=== PATIENT | female | born 2000 | race Caucasian/White ===

== ENCOUNTER 2020-01-27 11:45 | Emergency (ER) | payer SELFPAY ==
[2020-01-27 11:48] VITALS: BP 99/72; PULSE 108; RESP 18; TEMP 36.8; O2SAT 98; BMI 23.8
[2020-01-27 11:53] VITALS: BP 99/72; PULSE 103; RESP 18; O2SAT 98
--- NOTE | 2020-01-27 11:53 | XRR_ITS ---
PROCEDURE INFORMATION: Exam: XR Left Forearm Exam date and time: 01/27/2020 12:44 PM Age: 19 years old Clinical indication: Injury or trauma; Fall; Initial encounter; Blunt trauma (contusions or hematomas); Arm, lower; Left; Injury date: 01/26/20; Additional info: Injury/pain TECHNIQUE: Imaging protocol: XR Left forearm. Views: 2 views. COMPARISON: No relevant prior studies available. FINDINGS: Bones/joints: Nondisplaced fracture of the distal radius, which was better visualized on dedicated wrist radiographs. Soft tissues: No significant soft tissue swelling. XR/XR forearm LT 2V [id number] IMPRESSION: Nondisplaced fracture of the distal radius, which was better visualized on dedicated wrist radiographs.
--- NOTE | 2020-01-27 11:53 | XRR_ITS ---
PROCEDURE INFORMATION: Exam: XR Left Wrist Exam date and time: 01/27/2020 12:44 PM Age: 19 years old Clinical indication: Injury or trauma; Fall; Initial encounter; Blunt trauma (contusions or hematomas); Wrist; Left; Injury date: 01/26/20; Additional info: Injury/pain TECHNIQUE: Imaging protocol: XR Left wrist. Views: 3 or more views. COMPARISON: No relevant prior studies available. FINDINGS: Bones/joints: Nondisplaced intra-articular fracture of the distal left radius. Soft tissues: Unremarkable soft tissues. XR/XR wrist LT min 3V* [id number] IMPRESSION: Nondisplaced intra-articular fracture of the distal left radius.
--- NOTE | 2020-01-27 11:54 | ED_ITS ---
HPI - Extremity Injury (Upper) General: Chief Complaint: Extremity Injury, Upper Stated Complaint: LEFT FOREARM PAIN Time Seen by Provider: 01/27/20 11:47 Source: patient Mode of arrival: ambulatory Limitations: no limitations History of Present Illness: HPI narrative: Patient is a 19-year-old female who presents to ED today for evaluation of a left arm injury. Patient tells me yesterday her and another individual or leaning against a rail when the rail broke causing the other individual to land onto her left forearm and wrist. No other injury sustained during the fall. MD complaint: injury to: left, forearm and wrist Onset (ago): hour(s) Relieving factors: immobilization Exacerbating factors: movement of extremity Context: fall and direct blow Associated symptoms: Reports no associated symptoms; Denies neck pain Review of Systems Musc: Reports: extremity pain (L forearm) and joint pain (L wrist); Denies: neck pain or back pain Neuro: Denies: numbness in extremities or sensory changes Physical Exam Const: COMMON NORMALS: no acute distress, average body habitus, patient oriented x3, no limitations, healthy appearing, alert and well nourished Extremity: GENERAL: Yes normal exam except as noted OTHER: TTP mid to L distal forearm and wrist ; no obvious deformity noted; minimal swelling; NV intact; dec ROM of L wrist secondary to pain Neuro: COMMON NORMALS: patient oriented x3, moves all extremities, no focal motor deficits and no sensory deficits noted SENSORIUM/ORIENTATION: Yes alert Skin: COMMON NORMALS: no rashes or lesions noted GENERAL SKIN EXAM: no rashes or lesions noted Course Vital Signs: Vital signs: Vital Signs Temperature 98.2 F 01/27/20 11:48 Pulse Rate 70 01/27/20 13:31 Respiratory Rate 16 01/27/20 13:31 Blood Pressure 99/72 01/27/20 11:53 Pulse Oximetry 98 01/27/20 11:53 MDM - Extremity Injury (Upper) MDM Narrative: Medical decision making narrative: will splint and have her follow up with orthopedics Imaging Data^: XR L forearm: My impression: NAD XR L wrist: My impression: appears to have a slightly impacted non-displaced distal radial fx Discharge Plan Discharge Patient Disposition: Home Clinical Impression: Distal radius fracture, left Qualifiers: Encounter type: initial encounter Fracture type: closed Fracture morphology: unspecified fracture morphology Qualified Code(s): S52.502A - Unspecified fracture of the lower end of left radius, initial encounter for closed fracture Condition: Stable Prescriptions: No Action No Known Home Medications RF: 0 Discharge Orders: Discharge Order (Routine); Ordered 01/27/20 Ordered By: Edie Mcdaniel Referrals: Marisa Griffiths DO [Primary Care Provider] - Patient Instructions: Wrist Fracture in Adults (ED) Activity Restrictions/Additional Instructions: As discussed please follow up with orthopedics for further management. Stand Alone Forms: Work/School Release Discharge Date/Time: 01/27/20 13:32 Coding Level of Care Code ED Finisher Fine Diamond Dies for Zackeryg Fwd Exam Expanded Problem Focused
[2020-01-27 13:31] VITALS: PULSE 70; RESP 16
--- NOTE | 2020-01-29 09:25 | DCPLANNER ---
batch and furnace manager had message to schedule a follow up appointment for patient with ortho. batch and furnace manager called the ortho clinic, spoke with Pat, gave clinic patients information. batch and furnace manager was told that patients information would be printed and reviewed. Clinic will call patient with appointment information.
--- NOTE | 2020-01-30 12:33 | DCPLANNER ---
Patient has a follow up appointment scheduled for , February 01, 2020 at 12:[address] Vazquez. Clinic will call patient with appointment information.
--- NOTE | 2020-02-16 10:50 | DCPLANNER ---
Patient had follow up appointment scheduled with ortho - patient did attend the appointment.
== END 2020-01-27 13:32 | disposition home or self-care (01) ==
PROVIDERS: Emergency Provider Physician Assistant; PCP Family Medicine
DX: S52.502A Unspecified fracture of the lower end of left radius, initial encounter for closed fracture (principal); W03.XXXA Other fall on same level due to collision with another person, initial encounter
CPT/HCPCS: 12345; 29125; 73090; 73110; 99281; 99283

== ENCOUNTER → 2020-02-09 08:11 | Outpatient (BNVA) | payer SELFPAY | PROVIDERS: PCP Family Medicine; Visit Provider Orthopaedic Surgery | DX: S52.502A Unspecified fracture of the lower end of left radius, initial encounter for closed fracture (principal); W03.XXXA Other fall on same level due to collision with another person, initial encounter | CPT/HCPCS: 73110 ==

== ENCOUNTER 2020-02-09 09:59 | Outpatient (CLI) | payer SELFPAY | END 2020-02-09 10:00 | disposition home or self-care (01) | LOC: SPT 10:00 | PROVIDERS: PCP Family Medicine; Referring Provider Orthopaedic Surgery; Visit Provider Orthopaedic Surgery | DX: Z47.89 Encounter for other orthopedic aftercare (principal); S52.502D Unspecified fracture of the lower end of left radius, subsequent encounter for closed fracture with routine healing; X58.XXXD Exposure to other specified factors, subsequent encounter | CPT/HCPCS: 97760; L3982 ==

== ENCOUNTER 2020-02-12 14:46 | Emergency (ER) | payer OTHER, SELFPAY ==
[2020-02-12 14:56] VITALS: BP 122/80; PULSE 85; RESP 18; TEMP 37.1; O2SAT 98; BMI 23.8
--- NOTE | 2020-02-12 16:25 | ED_ITS ---
HPI - General Adult General: Chief complaint: General Medical Stated complaint: EXPOSED TO COVID, LOSS OF SMELL AND TASTE,FEVER, Time Seen by Provider: 02/12/20 15:05 History of Present Illness: HPI narrative: 19-year-old female patient presents to the emergency department with complaints of nausea vomiting x24 hours, reports was able to drink and eat some today without vomiting. She reports has experienced loss of taste and smell for the past 7 days. She also reports low- grade temp with chills and some diarrhea. No diarrhea today. 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 Has tested negative for COVID today. She reports does not know what is wrong with her and is not improving. Her oxygen saturation is 98% on room air. Onset (ago): day(s) (7) Pain Consistency: intermittent Relieving factors: rest Associated symptoms: Reports cough, decreased appetite (Due to loss of appetite), nausea and vomiting (None today); Deny chest pain, diaphoresis, dyspnea, headache(s), rash or palpitations Treatments prior to arrival: other (Tylenol) Review of Systems General: Reports: 10 or more systems reviewed and unremarkable except in HPI and below Const: Reports: fever(s), chills and body aches; Denies: diaphoresis Eyes: Denies: blurry vision or eye redness ENMT: Denies: throat pain, dental pain or disequilibrium Card: Denies: chest pain, palpitations or irregular heart rhythm Resp: Reports: non-productive cough; Denies: dyspnea, productive cough or wheezing GI: Reports: nausea, vomiting (None today) and diarrhea (None today) : Denies: difficulty voiding or dysuria Musc: Denies: back pain Skin/Breast: Denies: rash or pruritus Neuro: Denies: headache(s), weakness in extremities or behavioral changes Marco/Lymph: Denies: easy bruising PFSH ED PFSH: Social History (Updated 02/09/20 @ 08:17 by Jennifer Morfin LPN) Smoking and tobacco status: never smoked Alcohol intake: current Alcohol intake frequency: holidays/special occasions only Physical Exam Const: COMMON NORMALS: no acute distress, patient oriented x3, healthy appearing and alert GENERAL APPEARANCE: cooperative, comfortable and well hydrated HENMT: COMMON NORMALS: normocephalic, EAC's normal, TM's normal bilaterally, Normal external nose present and moist oral mucous membranes HEAD & SCALP: normocephalic FACE & SINUS: normal facial exam and sinuses nontender NOSE: Normal external nose present EXTERNAL AUDITORY CANAL: EAC's normal TYMPANIC MEMBRANE: TM's normal bilaterally MOUTH: Normal oral and palatal mucosa present THROAT: posterior oropharynx normal Eye: COMMON NORMALS: Equal, round and reactive pupils present and EOMs intact bilaterally GENERAL EYE: appearance normal, both eyes and all related structures PUPIL: Yes Equal, round and reactive pupils present Neck/C-Spine: COMMON NORMALS: full ROM and no lymphadenopathy GENERAL: Yes normal visual inspection and Yes trachea midline CERVICAL SPINE: Yes cervical ROM normal Lymph: LYMPHATIC: no lymphadenopathy noted Chest: COMMONS NORMALS: normal inspection of the chest Resp: COMMON NORMALS: normal respiratory effort and clear to auscultation bilaterally AUSCULTATION: clear to auscultation bilaterally Cardio: COMMON NORMALS: regular rhythm, S1 normal heart sound present, S2 normal heart sound present and Peripheral pulses 2+ throughout RHYTHM: regular rhythm HEART SOUNDS: S1 normal heart sound present and S2 normal heart sound present PERIPHERAL PULSES: Peripheral pulses 2+ throughout GI: COMMON NORMALS: Normal to inspection, nondistended, normoactive bowel sounds present, Soft to palpation and non-tender INSPECTION: Yes normal to inspection PALPATION: Yes Soft to palpation : COMMON NORMALS: Yes no CVA tenderness BLADDER/KIDNEY EXAM: Yes no CVA tenderness Back/Pelvis: COMMON NORMALS: no CVA tenderness and thoracic and lumbar spine normal to inspection Extremity: COMMON NORMALS: normal to inspection and capillary refill normal Neuro: COMMON NORMALS: patient oriented x3 and no focal motor deficits SENSORIUM/ORIENTATION: Yes alert Psych: COMMON NORMALS: mental status grossly normal, Normal thought process present and cooperative ACTIVITY/MOTOR BEHAVIOR: Yes appropriate eye contact THOUGHT PROCESS: Normal thought process present Skin: COMMON NORMALS: no rashes or lesions noted and turgor normal GENERAL SKIN EXAM: no rashes or lesions noted and turgor normal Course ED course: Patient was able to drink without episodes of nausea, initial COVID testing negative, she was retested today in the ED secondary to testing technique discrepancies possible with previous testing. She will be advised to not return to work as she has symptoms of COVID. Madalyn for nausea, questions were answered. She is requesting to go home, able to tolerate p.o. fluids without vomiting or nausea. Vital Signs: Vital signs: Vital Signs Temperature 98.7 F 02/12/20 14:56 Pulse Rate 60 02/12/20 17:14 Respiratory Rate 14 02/12/20 17:14 Blood Pressure 106/64 02/12/20 17:14 Pulse Oximetry 98 02/12/20 17:14 MDM - General Adult Lab Data: Labs: Lab Results 02/12/20 Range/Units 16:20 Influenza Type A A g Negative (Negative) Influenza Type B A g Negative (Negative) Discharge Plan Discharge Patient Disposition: Home Clinical Impression: Suspected 2019 novel coronavirus infection, Acute viral syndrome Nausea & vomiting Qualifiers: Vomiting type: unspecified Vomiting Intractability: unspecified Qualified Code(s): R11.2 - Nausea with vomiting, unspecified Condition: Stable Prescriptions: New Zofran 4 mg tablet 4 mg PO Q4H PRN (Reason: nausea and vomiting) Qty: 10 RF: 0 No Action (DME) COCK UP SPLINT See Rx Instructions .Route .MEDSUPPLY Qty: 1 RF: 0 Discharge Orders: Discharge Order (Routine); Ordered 02/12/20 Ordered By: Maude Dyson Referrals: Marisa Griffiths DO [Primary Care Provider] - Discharge Diet: Advance as tolerated and Clear Liquid Discharge Activity: Limit activity as instructed Patient Instructions: Acute Nausea and Vomiting (ED), Viral Syndrome (ED), Viral Syndrome - Adult Activity Restrictions/Additional Instructions: Take Zofran as needed for nausea vomiting Clear liquid diet, advance as tolerated, avoid spicy, fried or greasy foods until improved You will need to remain in quarantine until symptoms resolve Follow-up with your primary care physician this week Return to the emergency department if you develop nausea vomiting with inability to keep Zofran or fluids down or worsening symptoms Stand Alone Forms: Work/School Release Discharge Date/Time: 02/12/20 17:15 Coding Level of Care Code ED Advertising Coordinator for Esteban Fwarlyn Exam Comprehensive
[2020-02-12 16:46] LABS: Influenza A by IFA Negative (Negative); Influenza B by IFA Negative (Negative)
[2020-02-12 17:14] VITALS: BP 106/64; PULSE 60; RESP 14; O2SAT 98
[2020-02-13 16:42] LABS: Quest SARS-CoV-2 RNA DETECTED (NOT DETECTED)
--- NOTE | 2020-02-14 09:38 | PC.NURSE ---
unable to reach pt and not able to leave a voicemail. will try again later
--- NOTE | 2020-02-14 12:13 | PC.NURSE ---
pt called back and was given the results of her covid test
== END 2020-02-12 17:15 | disposition home or self-care (01) ==
PROVIDERS: Emergency Provider Nurse Practitioner Family; PCP Family Medicine
DX: U07.1 COVID-19 (principal)
CPT/HCPCS: 12345; 87635; 87804; 99281; 99282

== ENCOUNTER 2020-06-15 05:32 | Emergency (ER) | payer OTHER, SELFPAY ==
--- NOTE | 2020-06-15 05:57 | ED_ITS ---
HPI - Alcohol General: Stated Complaint: etoh Time Seen by Provider: 06/15/20 05:55 History of Present Illness: HPI narrative: 19-year-old female presents intoxicated with alcohol. She passed out in the car, and had previously complained of trouble breathing. She is not complaining of trouble breathing now. She also admits to smoking marijuana as well. 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 Chronic alcohol use: No Previous visits for alcohol intoxication: No Recent trauma: No Associated symptoms: Deny abdominal pain, nausea, seizure-like activity, syncope or vomiting Review of Systems Const: Denies: fever(s) or chills Card: Denies: chest pain or syncope Resp: Reports: dyspnea; Denies: productive cough, non-productive cough, wheezing or stridor GI: Denies: abdominal pain, nausea or vomiting Neuro: Denies: seizure-like activity PFS ED PFSH: Family History (Updated 04/25/20 @ 07:57 by Lynda Cam) Grandmother Diabetes Maternal and Paternal Hypercholesteremia Maternal Uterine cancer Maternal--dx age Grandfather Diabetes Maternal and Paternal Hypercholesteremia Maternal Heart disease Paternal Stroke Maternal Hypertension Maternal Mother Hypercholesteremia Family/Other Uterine cancer Maternal Aunt--dx age Denies family history of Colon cancer Ovarian cancer Breast cancer Bleeding disorder Thyroid disease Social History (Updated 04/25/20 @ 07:53 by Lynda Cam) Additional social history: - Tobacco use: Never Alcohol use: holidays/special occasions Drug use: denies Physical Exam Const: GENERAL APPEARANCE: well kempt and well developed ORIENTATION/CONSCIOUSNESS: Yes oriented to person, Yes oriented to place and Yes oriented to time HENMT: COMMON NORMALS: normocephalic, external ears normal and Normal external nose present HEAD & SCALP: normocephalic FACE & SINUS: normal facial exam NOSE: Normal external nose present and No nasal discharge present EXTERNAL EAR: Yes external ears normal Eye: COMMON NORMALS: Equal, round and reactive pupils present, EOMs intact bilaterally and conjunctivae normal EYELID: eyelids normal CONJUNCTIVA: Yes conjunctivae normal PUPIL: Yes Equal, round and reactive pupils present Neck/C-Spine: GENERAL: No tracheal deviation Chest: COMMONS NORMALS: normal inspection of the chest CHEST: No tenderness Resp: COMMON NORMALS: clear to auscultation bilaterally EFFORT & INSPECTION: No tachypneic, No respiratory distress, No retractions, No uses acc essory muscles and No tracheal deviation AUSCULTATION: clear to auscultation bilaterally, no rhonchi, no wheezes and lung sounds not diminished Cardio: COMMON NORMALS: regular rate and regular rhythm RATE: regular rate RHYTHM: regular rhythm HEART SOUNDS: no murmurs PERIPHERAL PULSES: radial pulses present GI: INSPECTION: No abdominal distension AUSCULTATION: No Hyperactive bowel sounds present and No Hypoactive bowel sounds present PALPATION: No Guarding due to palpation present (GI) and No Rigid due to palpation PERCUSSION: no dullness to percussion and no tympanic to percussion Neuro: SENSORIUM/ORIENTATION: Yes oriented to person, Yes oriented to place and Yes oriented to time Psych: COMMON NORMALS: Normal thought process present APPEARANCE: Yes grossly normal and Yes well kempt ATTITUDE: Yes evasive ACTIVITY/MOTOR BEHAVIOR: Yes appropriate eye contact SPEECH: Yes slurred MOOD & AFFECT: Yes irritable THOUGHT PROCESS: Normal thought process present THOUGHT CONTENT: No Suicidality present, No delusions and No Hallucination(s) present OTHER: Intoxicated. But knows date, place, person, and situation. The patient walked without help in the ER. Skin: COMMON NORMALS: no rashes or lesions noted GENERAL SKIN EXAM: no rashes or lesions noted MDM - Alcohol MDM Narrative: Medical decision making narrative: Upon interview with the patient, she decided that she did not want medical treatment. She signed an AMA form. Again she was warned of risks of leaving. She has a sober pizza delivery driver. He gi ves verbal consent to watch her until sober. Discharge Plan Discharge Patient Disposition: Left Against Medical Advice Clinical Impression: Alcohol intoxication Qualifiers: Complication of substance-induced condition: uncomplicated Qualified Code(s): F10.920 - Alcohol use, unspecified with intoxication, uncomplicated Condition: Stable Prescriptions: No Action (DME) COCK UP SPLINT See Rx Instructions .Route .MEDSUPPLY Qty: 1 RF: 0 Zofran 4 mg tablet 4 mg PO Q4H PRN (Reason: nausea and vomiting) Qty: 10 RF: 0 Referrals: Marisa Griffiths DO [Primary Care Provider] - 1-3 days Patient Instructions: Alcohol Intoxication (ED) Coding Level of Care Code ED Medical Diagnostic Radiographer for Chg Fwd Exam Comprehensive
== END 2020-06-15 06:02 | disposition left against medical advice (07) ==
PROVIDERS: Emergency Provider Emergency Medicine; PCP Family Medicine
DX: F10.920 Alcohol use, unspecified with intoxication, uncomplicated (principal); Z53.21 Procedure and treatment not carried out due to patient leaving prior to being seen by health care provider
CPT/HCPCS: 12345; 99281

== ENCOUNTER → 2021-01-07 18:55 | Outpatient (BNVA) | payer SELFPAY | PROVIDERS: PCP Family Medicine; Visit Provider Registered Nurse Neonatal Intensive Care | DX: R39.9 Unspecified symptoms and signs involving the genitourinary system (principal); Z20.2 Contact with and (suspected) exposure to infections with a predominantly sexual mode of transmission | CPT/HCPCS: 81000; 87491; 87591; 87661 ==

== ENCOUNTER 2021-05-06 17:39 | Emergency (ER) | payer SELFPAY ==
--- NOTE | 2021-05-06 18:19 | XRR_ITS ---
PROCEDURE INFORMATION: Exam: XR Chest Exam date and time: 05/06/2021 6:19 PM Age: 20 years old Clinical indication: Chest wall pain and left-sided; Additional info: SOB TECHNIQUE: Imaging protocol: XR of the chest. Views: 1 view. COMPARISON: No relevant prior studies available. FINDINGS: Lungs: Unremarkable. No consolidation. Pleural spaces: Unremarkable. No pleural effusion. No pneumothorax. Heart/Mediastinum: Unremarkable. No cardiomegaly. Bones/joints: Unremarkable. XR/XR chest 1V portable [id number] IMPRESSION: No acute findings.
[2021-05-06 19:33] VITALS: BP 116/71; PULSE 98; RESP 19; TEMP 36.6; O2SAT 98; BMI 21.9
--- NOTE | 2021-05-06 19:49 | W.ED.COVID ---
HPI - COVID General: Chief Complaint: COVID symptoms Stated Complaint: COVID Time Seen by Provider: 05/06/21 19:31 Source: patient Mode of arrival: ambulatory Limitations: no limitations Triage information: Has fever, cough or shortness of breath. History of Present Illness: HPI Narrative: 20-year-old female states that over the last 10 days she been having cough body aches some nausea. States over the last 2 to 3 days she is also lost her sense of taste and smell. She is concerned she may have Covid she had some mild dyspnea patient is in no distress here pulse ox 90% on room air no fever here. She denies any worsening improving factors. COVID 19 common symptoms: positive fever(s), chills, non-productive cough and body aches; negative headache(s), throat pain, nausea, vomiting or diarrhea COVID 19 other sytmptoms: negative chest pain COVID Results: SARS-CoV-2 RNA (RT-PCR) Detected (NOT DETECTED) A 02/12/20 16:20 02/12/20 Review of Systems Const: Reports: fever(s), chills and body aches Eyes: Denies: blurry vision or eye discomfort ENMT: Denies: throat pain or dental pain Card: Denies: chest pain Resp: Reports: non-productive cough GI: Denies: abdominal pain, nausea, vomiting or diarrhea : Denies: dysuria Musc: Denies: neck pain or back pain Skin/Breast: Denies: rash Neuro: Denies: headache(s) Psych: Denies: depression Marco/Lymph: Denies: easy bruising All/Imm: Denies: urticaria PFSH ED PFSH: Family History Grandmother Diabetes Maternal and Paternal Hypercholesteremia Maternal Uterine cancer Maternal--dx age Grandfather Diabetes Maternal and Paternal Hypercholesteremia Maternal Heart disease Paternal Stroke Maternal Hypertension Maternal Mother Hypercholesteremia Family/Other Uterine cancer Maternal Aunt--dx age Denies family history of Colon cancer Ovarian cancer Breast cancer Bleeding disorder Thyroid disease Social History Additional social history: - Tobacco use: Never Alcohol use: holidays/special occasions Drug use: denies Physical Exam Const: COMMON NORMALS: no acute distress, patient oriented x3 and healthy appearing HENMT: COMMON NORMALS: normocephalic and atraumatic HEAD & SCALP: normocephalic and atraumatic Eye: COMMON NORMALS: Equal, round and reactive pupils present and EOMs intact bilaterally PUPIL: Yes Equal, round and reactive pupils present Neck/C-Spine: COMMON NORMALS: full ROM and supple Chest: COMMONS NORMALS: normal inspection of the chest and normal palpation of entire chest wall Resp: COMMON NORMALS: normal respiratory effort, No retractions, No use of accessory muscles and clear to auscultation bilaterally AUSCULTATION: clear to auscultation bilaterally Cardio: COMMON NORMALS: regular rate, regular rhythm and No murmurs present (Cardio) RATE: regular rate RHYTHM: regular rhythm GI: COMMON NORMALS: Normal to inspection, nondistended, normoactive bowel sounds present, Soft to palpation, non-tender and no masses PALPATION: Yes Soft to palpation Extremity: COMMON NORMALS: normal to inspection and full ROM Neuro: COMMON NORMALS: patient oriented x3, moves all extremities and no focal motor deficits Psych: COMMON NORMALS: mental status grossly normal, Normal thought process present and cooperative THOUGHT PROCESS: Normal thought process present Skin: COMMON NORMALS: no rashes or lesions noted and no wounds GENERAL SKIN EXAM: no rashes or lesions noted Course Vital Signs: Vital signs: Vital Signs Temperature 97.9 F 05/06/21 19:33 Pulse Rate 98 05/06/21 19:33 Respiratory Rate 19 H 05/06/21 19:33 Blood Pressure 116/71 05/06/21 19:33 Pulse Oximetry 98 05/06/21 19:33 MDM - COVID MDM Narrative: Medical decision making narrative: Patient presents with cough body aches loss of taste and smell symptoms been 10 days patient likely has Covid will do a PCR and follow-up with patient. We will give her Decadron here prescribe Zofran for home she is stable for discharge return if worsening. Imaging Data: CXR: Attestation: I personally reviewed and interpreted this imaging study as follows: My impression: No acute abnormality COVID Results: SARS-CoV-2 RNA (RT-PCR) Detected (NOT DETECTED) A 02/12/20 16:20 02/12/20 Discharge Plan Discharge Patient Disposition: Home Clinical Impression: Suspected 2019 novel coronavirus infection Condition: Stable Prescriptions: New ondansetron 4 mg tablet,disintegrating 4 mg PO Q6H PRN (Reason: nausea and vomiting) Qty: 14 RF: 0 No Action azithromycin 1 gram packet 1 g PO ONCE Qty: 1 RF: 0 Discharge Orders: Discharge ED (Routine); Ordered 05/06/21 Ordered By: Kenji Kong Referrals: Marisa Griffiths DO [Primary Care Provider] - 1-3 days Discharge Diet: Advance as tolerated Discharge Activity: Resume usual activity Patient Instructions: COVID-19 (Coronavirus Disease 2019) (ED) Coding Level of Care Code ED Telephoto Installer for Esteban Kuhn
[2021-05-06] MEDS: ibuprofen 800 mg tablet PO (20:32)
[2021-05-06] MEDS: ondansetron 4 MG Tablet PO (20:33)
[2021-05-06] MEDS: dexamethasone 4 mg Tablet 10 MG PO (20:33)
[2021-05-06 20:41] VITALS: BP 100/67; PULSE 90; RESP 18; TEMP 37.1; O2SAT 98
[2021-05-06 23:03] LABS: Adenovirus Not Detected (NOT DETECT); Chlamydia Pneumoniae Not Detected (NOT DETECT); Coronavirus 229E,HKU1,NL63,OC4 Not Detected (NOT DETECT); Human Metapneumovirus Not Detected (NOT DETECT); Human Rhinovirus/Enterovirus Not Detected (NOT DETECT); Influenza A Not Detected (NOT DETECT); Influenza A H1 Not Detected (NOT DETECT); Influenza A H1-2009 Not Detected (NOT DETECT); Influenza A H3 Not Detected (NOT DETECT); Influenza B Not Detected (NOT DETECT); Mycoplasma Pneumoniae Not Detected (NOT DETECT); Parainfluenza Virus Type 1 Not Detected (NOT DETECT); Parainfluenza Virus Type 2 Not Detected (NOT DETECT); Parainfluenza Virus Type 3 Not Detected (NOT DETECT); Parainfluenza Virus Type 4 Not Detected (NOT DETECT); Respiratory Syncytial Virus A Not Detected (NOT DETECT); Respiratory Syncytial Virus B Not Detected (NOT DETECT); SARS-COV-2 Not Detected (NOT DETECT)
[2021-05-06 23:41] LABS: Results from Genmark
== END 2021-05-06 21:05 | disposition home or self-care (01) ==
PROVIDERS: Emergency Provider Emergency Medicine; PCP Family Medicine
DX: U07.1 COVID-19 (principal)
CPT/HCPCS: 71045; 87631; 87635; 99283; J8540; Q0162

== ENCOUNTER → 2022-02-10 14:10 | Outpatient (BNVA) | payer SELFPAY | PROVIDERS: PCP Family Medicine; Visit Provider Family Medicine Adult Medicine | DX: N64.59 Other signs and symptoms in breast (principal) | CPT/HCPCS: 81025 ==

== ENCOUNTER 2022-02-21 09:12 | Emergency (ER) | payer SELFPAY ==
--- NOTE | 2022-02-21 09:16 | W.ED.GENADLT ---
HPI - General Adult General: Chief complaint: General Medical Stated complaint: lump on breast Time Seen by Provider: 02/21/22 09:15 History of Present Illness: lump on left breast Review of Systems Skin/Breast: Reports: breast pain and breast mass (left) [facility] ED PFSH: Family History Grandmother Diabetes Maternal and Paternal Hypercholesteremia Maternal Uterine cancer Maternal--dx age Grandfather Diabetes Maternal and Paternal Hypercholesteremia Maternal Heart disease Paternal Stroke Maternal Hypertension Maternal Mother Hypercholesteremia Family/Other Uterine cancer Maternal Aunt--dx age Denies family history of Colon cancer Ovarian cancer Breast cancer Bleeding disorder Thyroid disease Social History Additional social history: - Tobacco use: Never Alcohol use: holidays/special occasions Drug use: denies Physical Exam Const: COMMON NORMALS: no acute distress, patient oriented x3 and healthy appearing HENMT: COMMON NORMALS: normocephalic and atraumatic HEAD & SCALP: normocephalic and atraumatic Eye: COMMON NORMALS: Equal, round and reactive pupils present and EOMs intact bilaterally PUPIL: Yes Equal, round and reactive pupils present Neck/C-Spine: COMMON NORMALS: full ROM and supple Chest: COMMONS NORMALS: normal inspection of the chest and normal palpation of entire chest wall BREAST/AXILLA PALPATION: Yes normal palpation of the axillae and Yes abnormal palpation of the breast (left breast, large mass 1oclock position ) Resp: COMMON NORMALS: normal respiratory effort, No retractions, No use of accessory muscles and clear to auscultation bilaterally AUSCULTATION: clear to auscultation bilaterally Cardio: COMMON NORMALS: regular rate, regular rhythm and No murmurs present (Cardio) RATE: regular rate RHYTHM: regular rhythm GI: COMMON NORMALS: Normal to inspection, nondistended, normoactive bowel sounds present, Soft to palpation, non-tender and no masses PALPATION: Yes Soft to palpation Extremity: COMMON NORMALS: normal to inspection and full ROM Neuro: COMMON NORMALS: patient oriented x3, moves all extremities and no focal motor deficits Psych: COMMON NORMALS: mental status grossly normal, Normal thought process present and cooperative THOUGHT PROCESS: Normal thought process present Skin: COMMON NORMALS: no rashes or lesions noted and no wounds GENERAL SKIN EXAM: no rashes or lesions noted Course Vital Signs: Vital signs: Vital Signs Temperature 98.0 F 02/21/22 09:17 Pulse Rate 87 02/21/22 09:17 Respiratory Rate 14 02/21/22 09:17 Blood Pressure 110/71 02/21/22 09:17 Pulse Oximetry 98 02/21/22 09:17 Oxygen Delivery Me thod 02/21/22 09:17 MDM - General Adult Medical Decision Making Pt has hx of mastitis 5 years ago. She presents with a large golf ball sized lump in her left breast that has increasing pain and tenderness x 2 weeks. She has had a full course of antibx with no relief. I will US today and have her follow up with [facility] to have mammogram scheduled. Lab Data US negative for any findings; dense breast tissue Discharge Plan Discharge Patient Disposition: Home Clinical Impression: Breast lump in female Condition: Stable Prescriptions: No Action IUD intrauterine Discharge Orders: Discharge ED (Routine); Ordered 02/21/22 Ordered By: Brandi Alonzo Referrals: Marisa Griffiths DO [Primary Care Provider] - Patient Instructions: Opioid Safety, Pain Management Activity Restrictions/Additional Instructions: Contact [facility] for follow up Mammogram if pain persists Evening Williamson Oil supplements can manage breast pain Inositol 500mg PO can help decrease excess estrogen in the body Ensure daily Bowel Movements for proper detoxification Follow low sugar, whole foods diet with exercise to decrease risk of insulin resistance and breast cancer due to strong family history Coding Level of Care Code ED Sulky Driver for Chg Fwd Exam Comprehensive
[2022-02-21 09:17] VITALS: BP 110/71; PULSE 87; RESP 14; TEMP 36.7; O2SAT 98; BMI 23.3
[2022-02-21 09:23] VITALS: BP 108/75; PULSE 81; RESP 16; O2SAT 97
--- NOTE | 2022-02-21 09:46 | USR_ITS ---
PROCEDURE INFORMATION: Exam: US Left Breast Limited Exam date and time: 02/21/2022 9:53 AM Age: 21 years old Clinical indication: Mass, lump, or swelling; Left; Additional info: Large lump 1 oclock position TECHNIQUE: Imaging protocol: Limited ultrasound of Left breast with image documentation, including axilla when performed. Exam focused on the search and evaluation for mass. COMPARISON: No relevant prior studies available. FINDINGS: Breast: Dense fibroglandular tissue is present in the upper outer quadrant. No solid or cystic lesions. US/US breast LT limited* [id number] IMPRESSION: No sonographic evidence of malignancy. Age appropriate mammographic screening is recommended unless otherwise clinically indicated.
[2022-02-21 10:34] VITALS: BP 108/75; PULSE 72; RESP 15
== END 2022-02-21 10:36 | disposition home or self-care (01) ==
PROVIDERS: Emergency Provider Nurse Practitioner Family; PCP Family Medicine
DX: N63.20 Unspecified lump in the left breast, unspecified quadrant (principal)
CPT/HCPCS: 76642; 99284

== ENCOUNTER → 2022-05-06 14:26 | Outpatient (BNVA) | payer SELFPAY | PROVIDERS: PCP Family Medicine; Visit Provider Nurse Practitioner Women's Health | DX: N63.21 Unspecified lump in the left breast, upper outer quadrant (principal); Z01.419 Encounter for gynecological examination (general) (routine) without abnormal findings; Z12.4 Encounter for screening for malignant neoplasm of cervix; Z11.3 Encounter for screening for infections with a predominantly sexual mode of transmission | CPT/HCPCS: 87491; 87591; 87661; 88175 ==

== ENCOUNTER → 2022-07-21 17:26 | Outpatient (BNVA) | payer SELFPAY | PROVIDERS: PCP Family Medicine; Visit Provider Emergency Medicine | DX: B34.9 Viral infection, unspecified (principal); R50.9 Fever, unspecified | CPT/HCPCS: 87426 ==

== ENCOUNTER → 2022-11-09 14:41 | Outpatient (BNVA) | payer SELFPAY | PROVIDERS: PCP Family Medicine; Visit Provider Registered Nurse Neonatal Intensive Care | DX: R35.0 Frequency of micturition (principal); N89.8 Other specified noninflammatory disorders of vagina; N39.0 Urinary tract infection, site not specified; B37.31 Acute candidiasis of vulva and vagina; Z20.2 Contact with and (suspected) exposure to infections with a predominantly sexual mode of transmission | CPT/HCPCS: 81000; 87086; 87491; 87591; 87661 ==

== ENCOUNTER → 2023-02-08 14:48 | Outpatient (BNVA) | payer SELFPAY | PROVIDERS: PCP Family Medicine; Visit Provider Nurse Practitioner | DX: Z20.822 Contact with and (suspected) exposure to COVID-19 (principal); J06.9 Acute upper respiratory infection, unspecified | CPT/HCPCS: 87426 ==

== ENCOUNTER 2023-03-28 19:56 | Emergency (ER) | payer SELFPAY ==
[2023-03-28 20:00] VITALS: BP 115/80; PULSE 59; RESP 17; TEMP 36.6; O2SAT 95; BMI 24.6
[2023-03-28] MEDS: sodium chloride 0.9% 1,000 ML 999 ML IV (20:22)
[2023-03-28 20:24] LABS: Basophils % 0.3 %; Eosinophils # 0.1 10^3/uL (0.0-0.8); Eosinophils % 1.3 %; Hematocrit 42.9 % (36-47); Lymphocytes # 1.7 10^3/uL (0.8-4.8); Lymphocytes % 21.7 %; Mean Corpuscular Volume 91.1 fl (85-98); Mean Platelet Volume 10.4 fL (7.4-10.4); Monocytes # 0.6 10^3/uL (0.2-0.9); Monocytes % 7.1 %; Neutrophils # 5.34 10^3/uL (1.8-7.7); Neutrophils % 69.2 %; Nucleated Red Blood Cells % 0 %; Platelet Count 290 10^3/cmm (157-399); Red Blood Count 4.71 10^6/uL (3.85-5.65); Red Cell Distribution Width 12.2 % (12.1-15.1); White Blood Count 7.71 10^3/uL (3.29-11.43)
[2023-03-28 20:41] LABS: Alanine Aminotransferase 7 U/L (0-33); Albumin Level 4.8 g/dL (3.5-5.2); Alkaline Phosphatase 69 U/L (35-105); Anion Gap 14.9 (5-19); Aspartate Amino Transferase 19 U/L (0-32); Blood Urea Nitrogen 9 mg/dL (6-20); Calcium 9.3 mg/dL (8.5-10.5); Carbon Dioxide 25 mmol/L (22-29); Chloride 106 mmol/L (98-107); Globulin 2.9 g/dL (1.3-4.6); Glomerular Filtration Rate 89.7 mL/min (90-130); Glucose 161 mg/dL (65-115); Lipase 27 U/L (13-60); Osmolality Calculated 296 mOsm/kg (285-295); Potassium 3.9 mmol/L (3.5-5.1); Sodium 142 mmol/L (136-145); Total Bilirubin 0.7 mg/dL (0.15-1.2); Total Protein 7.7 g/dL (6.6-8.7)
[2023-03-28 20:46] LABS: HCG, Serum Qual Negative (Negative)
[2023-03-28 20:53] VITALS: BP 121/91; PULSE 72; O2SAT 98
[2023-03-28 21:00] LABS: Add Urine Microscopic? YES; Bilirubin Urine Neg (Negative); Blood Urine Trace (Negative); Glucose Urine UA Norm (Normal); Ketones Urine 1+ (Negative); Leukocyte Esterase Urine 1+ (Negative); Nitrate Urine Negative (Negative); Protein Urine Neg (Negative); Specific Gravity, Urine 1.025 (1.005-1.030); Urine Appearance Hazy (CLEAR); Urine Color Yellow (Yellow); Urobilinogen Urine Neg (Negative); pH Urine 5 (5-7)
--- NOTE | 2023-03-28 21:08 | ECG_ITS ---
[facility] Test Date: 2023-03-28 Pat Name: Mindi Schaefer Department: Room: Gender: Female Final Application Reviewer: : 2000 Requested By: Tenzin David Order Number: [id number] Thelma MD: Gerri Meadows M.D. Measurements Intervals [place] Rate: 87 P: 63 WA: 145 QRS: 54 QRSD: 99 T: 30 QT: 364 QTc: 439 Interpretive Statements SINUS RHYTHM INCOMPLETE RIGHT BUNDLE BRANCH BLOCK [90+ ms QRS DURATION, TERMINAL R IN V1/V2, 40+ ms S IN I/aVL/V4/V5/V6] No previous ECG available for comparison Electronically Signed On 03-29-2023 8:09:20 WAXER TENDER by Gerri Meadows M.D. [id number]
[2023-03-28 21:11] LABS: Add Urine Culture? No; Bacteria Urine 1+ /hpf; RBC Urine 0-4 /hpf (0-2); Squamous Epithelial Cell Urine 25-40 /hpf (0-5)
--- NOTE | 2023-03-28 21:20 | ED_ITS ---
HPI - Female Genitourinary General: Chief complaint: Urogenital-Female Stated complaint: Kidney Pain Time Seen by Provider: 03/28/23 20:03 History of Present Illness: 22-year-old female presenting with intermittent suprapubic abdominal pain, frequency, and urgency. She has had the symptoms on and off for more than a week. No fever. No vomiting. She has an IUD. She notes there is been a scant amount of bleeding. No significant discharge. She believes the IUD is due to come out/. No history of abdominal surgery. Associated symptoms: Reports abdominal pain and nausea Review of Systems Const: Denies: fever(s) or chills ENMT: Denies: throat pain Card: Reports: chest pain (Awoke with it this morning. Resolved now.) Resp: Denies: dyspnea, productive cough or non-productive cough GI: Reports: abdominal pain, nausea, constipation and GI cramping; Denies: vomiting : Reports: urinary frequency and urinary urgency; Denies: flank pain PFSH ED PFSH: Family History Grandmother Diabetes Maternal and Paternal Hypercholesteremia Maternal Uterine cancer Maternal--dx age Grandfather Diabetes Maternal and Paternal Hypercholesteremia Maternal Heart disease Paternal Stroke Maternal Hypertension Maternal Mother Hypercholesteremia Family/Other Uterine cancer Maternal Aunt--dx age Denies family history of Colon cancer Ovarian cancer Breast cancer Bleeding disorder Thyroid disease Social History Substance/Drug Use: never Physical Exam Const: COMMON NORMALS: no acute distress GENERAL APPEARANCE: cooperative; not ill appearing and not frail appearing HENMT: COMMON NORMALS: normocephalic, atraumatic and Normal external nose present HEAD & SCALP: normocephalic and atraumatic FACE & SINUS: normal facial exam and face symmetric NOSE: Normal external nose present Eye: COMMON NORMALS: Equal, round and reactive pupils present and EOMs intact bilaterally PUPIL: Yes Equal, round and reactive pupils present Neck/C-Spine: GENERAL: Yes trachea midline Chest: CHEST: Yes Symmetrical chest wall rise Resp: COMMON NORMALS: normal respiratory effort, No retractions, No use of accessory muscles and clear to auscultation bilaterally AUSCULTATION: clear to auscultation bilaterally Cardio: COMMON NORMALS: regular rate and regular rhythm RATE: regular rate RHYTHM: regular rhythm GI: COMMON NORMALS: Normal to inspection, nondistended, normoactive bowel sounds present Extremity: COMMON NORMALS: no pedal edema Neuro: [place]INCE COMA SCALE: document GCS findings [place] coma scale eye opening: Spontaneous [place] coma scale verbal response: Orientated [place] coma scale motor response: Obey commands [place] coma scale total score: 15 SENSORY EXAM: Yes extremities (intact) Psych: COMMON NORMALS: speech normal SPEECH: Yes normal speech Skin: COMMON NORMALS: no rashes or lesions noted GENERAL SKIN EXAM: no rashes or lesions noted Course Vital Signs: Vital signs: Vital Signs Temperature 97.8 F 03/28/23 20:00 Pulse Rate 72 03/28/23 20:53 Respiratory Rate 17 03/28/23 20:00 Blood Pressure 121/91 03/28/23 20:53 Pulse Oximetry 98 03/28/23 20:53 Oxygen Delivery Me thod Room Air 03/28/23 20:53 MDM - Female Medical Decision Making Healthy 22-year-old female. Vitals are normal. She is afebrile. CBC is normal. BMP is not remarkable. Liver enzymes are normal. CRP is 3. Urinalys is is contaminated with squamous cells, but does reveal pyuria and 1+ leukocyte Estrace. She will be treated as she is symptomatic. Close outpatient follow- up, to ensure urine is clearing. Lab Data 03/28/23 20:16 03/28/23 20:16 Laboratory Results WBC 7.71 10^3/uL (3.29-11.43) 03/28/23 20:16 RBC 4.71 10^6/uL (3.85-5.65) 03/28/23 20:16 Hgb 14.60 g/dL (11.27-16.99) 03/28/23 20:16 Hct 42.9 % (36-47) 03/28/23 20:16 MCV 91.1 fl (85-98) 03/28/23 20:16 MCH 31.0 pg (27-33) 03/28/23 20:16 MCHC 34.0 g/dL (30-55) 03/28/23 20:16 RDW 12.2 % (12.1-15.1) 03/28/23 20:16 Plt Count 290 10^3/cmm (157-399) 03/28/23 20:16 MPV 10.4 fL (7.4-10.4) 03/28/23 20:16 Neut % (Auto) 69.2 % 03/28/23 20:16 Lymph % (Auto) 21.7 % 03/28/23 20:16 [place] % (Auto) 7.1 % 03/28/23 20:16 Eos % (Auto) 1.3 % 03/28/23 20:16 Baso % (Auto) 0.3 % 03/28/23 20:16 Neut # (Auto) 5.34 10^3/uL (1.8-7.7) 03/28/23 20:16 Lymph # (Auto) 1.7 10^3/uL (0.8-4.8) 03/28/23 20:16 [place] # (Auto) 0.6 10^3/uL (0.2-0.9) 03/28/23 20:16 Eos # (Auto) 0.1 10^3/uL (0.0-0.8) 03/28/23 20:16 Baso # (Auto) 0.0 10^3/uL (0.0-0.1) 03/28/23 20:16 Nucleated RBC % (auto) 0 % 03/28/23 20:16 Nucleated RBCs # 0.0 /100WBC 03/28/23 20:16 Sodium 142 mmol/L (136-145) 03/28/23 20:16 Potassium 3.9 mmol/L (3.5-5.1) 03/28/23 20:16 Chloride 106 mmol/L (98-107) 03/28/23 20:16 Carbon Dioxide 25 mmol/L (22-29) 03/28/23 20:16 Anion Gap 14.9 (5-19) 03/28/23 20:16 BUN 9 mg/dL (6-20) 03/28/23 20:16 Creatinine 0.8 mg/dL (0.5-0.9) 03/28/23 20:16 GFR Calculation 89.7 mL/min (90-130) L 03/28/23 20:16 Glucose 161 mg/dL (65-115) H 03/28/23 20:16 Calculated Osmolality 296 mOsm/kg (285-295) H 03/28/23 20:16 Calcium 9.3 mg/dL (8.5-10.5) 03/28/23 20:16 Total Bilirubin 0.7 mg/dL (0.15-1.2) 03/28/23 20:16 AST 19 U/L (0-32) 03/28/23 20:16 ALT 7 U/L (0-33) 03/28/23 20:16 Alkaline Phosphatase 69 U/L (35-105) 03/28/23 20:16 C-Reactive Protein 3.0 mg/L (0.0-4.9) 03/28/23 20:16 Total Protein 7.7 g/dL (6.6-8.7) 03/28/23 20:16 Albumin 4.8 g/dL (3.5-5.2) 03/28/23 20:16 Globulin 2.9 g/dL (1.3-4.6) 03/28/23 20:16 Lipase 27 U/L (13-60) 03/28/23 20:16 HCG, Qual Negative (Negative) 03/28/23 20:16 Urine Color Yellow (Yellow) 03/28/23 20:49 Urine Appearance Hazy (CLEAR) A 03/28/23 20:49 Urine pH 5 (5-7) 03/28/23 20:49 Ur Specific [place] 1.025 (1.005-1.030) 03/28/23 20:49 Urine Protein Neg (Negative) 03/28/23 20:49 Urine Glucose (UA) Norm (Normal) 03/28/23 20:49 Urine Ketones 1+ (Negative) H 03/28/23 20:49 Urine Blood Trace (Negative) H 03/28/23 20:49 Urine Nitrate Negative (Negative) 03/28/23 20:49 Urine Bilirubin Neg (Negative) 03/28/23 20:49 Urine Urobilinogen Neg mg/dL (Negative) 03/28/23 20:49 Ur Leukocyte Esterase 1+ (Negative) H 03/28/23 20:49 Urine RBC 0-4 /hpf (0-2) H 03/28/23 20:49 Urine WBC 10-15 /hpf (0-5) H 03/28/23 20:49 Ur Squamous Epith Cells 25-40 /hpf (0-5) H 03/28/23 20:49 Amorphous Sediment Not Reportable 03/28/23 20:49 Urine Bacteria 1+ /hpf (NONE) H 03/28/23 20:49 No radiology studies performed this visit Discharge Plan Discharge Patient Disposition: Home Clinical Impression: Urinary tract infection Condition: Stable Prescriptions: New Bactrim DS 800-160 mg tablet 1 tab PO BID Qty: 10 0RF No Action promethazine-DM 6.25-15 mg/5 mL syrup 5 ml PO Q4H PRN (Reason: cough) Qty: 118 0RF Rx Instructions: Do not exceed more than 30ml/24hour period (6 doses) IUD intrauterine Discharge Orders: Discharge ED (Routine); Ordered 03/28/23 Ordered By: Tenzin Riddle Referrals: Marisa Griffiths DO [Primary Care Provider] - 1-3 days Patient Instructions: Urinary Tract Infection in Women (ED) Activity Restrictions/Additional Instructions: Monitor for fever. Return for fever greater than 100, vomiting liquids or medications, worsening pain despite treatment, other concerning symptoms. See your doctor later this week. Repeat urine testing can be done to ensure you are eradicating your infection. You can also ask about IUD removal at that point. Coding Level of Care Code ED Manager Behavior for Esteban Kuhn
[2023-03-28] MEDS: sulfamethoxazole-trimeth DS 160-800 mg Tablet 1 TAB PO (21:36)
== END 2023-03-28 21:53 | disposition home or self-care (01) ==
PROVIDERS: Emergency Provider Emergency Medicine; PCP Family Medicine
DX: N39.0 Urinary tract infection, site not specified (principal)
CPT/HCPCS: 36415; 80053; 81001; 83690; 84703; 85025; 86140; 93005; 99284; J7030